=== PATIENT | female | born 1970 | race Caucasian/White ===

== ENCOUNTER 2023-06-01 06:20 | Emergency (ER) | payer OTHER, SELFPAY ==
[2023-06-01 06:22] VITALS: BP 124/71; PULSE 79; RESP 15; TEMP 36.6; O2SAT 95
[2023-06-01 07:10] LABS: Absolute Lymphocyte Count 2.64 X10^3/uL (0.83-4.51); Absolute Neutrophil Count 5.2 X10^3/uL (2.0-7.7); Basophil# 0.06 X10^3/uL; Basophil% 0.7 % (0-1); Eosinophil# 0.18 X10^3/uL; Lymphocyte # 2.64 X10^3/ul (0.83-4.51); Lymphocyte % 28.7 % (19-41); Mean Corp Hgb Conc 32.6 g/dL (32-36); Mean Corpuscular Hgb 28.8 pg (27.0-32.0); Mean Corpuscular Volume 88.3 fL (81-99); Mean Platelet Vol. 9.9 fl (6.2-12.0); Monocyte# 1.08 X10^3/uL; Monocyte% 11.7 % (0-10); NRBC Flagged by Analyzer 0 % (0-5); Neutrophil # 5.21 X10^3/uL (2.7-7.7); Neutrophil % 56.6 % (47-70); Platelet Count 315 K/mm3 (150-450); RBC Distribution Width CV 13.3 % (11.6-14.6); RBC Distribution Width SD 43.2 fl (35.1-43.9); Red Blood Count 5.21 M/mm3 (4.2-5.4); White Blood Count 9.2 K/mm3 (4.4-11.0)
--- OUTSIDE RECORDS SUMMARY | 2023-06-01 07:13 | XMS RPT_ITS | CCD ---
Author Name Unknown Address [address] [facility] [address] [place] [address] Organization [facility] Care Team Providers Care Desizing Machine Offbearer Name Role Phone JAVIER BLANCASBERLY Consulting Unavailable LOI PEPPER DR Attending Unavailable LOI PEPPER DR Admitting Unavailable LOI PEPPER DR Primary Care Unavailable PROVIDER, UNKNOWN Consulting Unavailable YONNY, TALA Consulting Unavailable LOI PEPPER DR Admitting Unavailable LOI PEPPER DR Primary Care Unavailable LOI PEPPER DR Attending Unavailable PROVIDER, UNKNOWN Consulting Unavailable YONNY, TALA Consulting Unavailable YONNY, TALA Attending Unavailable HILLS, TALA Admitting Unavailable [place], TALA Primary Care Unavailable PROVIDER, UNKNOWN Consulting Unavailable YONNY, TALA Consulting Unavailable LOI PEPPER DR Attending Unavailable LOI PEPPER DR Admitting Unavailable LOI PEPPER DR Primary Care Unavailable PROVIDER, UNKNOWN Consulting Unavailable YONNY, TALA Referring Unavailable CHACON, STEFFANIE C Primary Care Unavailable OSWALDO STEFFANIE C Attending Unavailable OSWALDO STEFFANIE C Admitting Unavailable YONNY, TALA Consulting Unavailable PROVIDER, UNKNOWN Consulting Unavailable YONNY, TALA Consulting Unavailable YONNY, TALA Referring Unavailable CHACON, STEFFANIE C Primary Care Unavailable CHACON STEFFANIE C Attending Unavailable CHACON, STEFFANIE C Admitting Unavailable PROVIDER, UNKNOWN Consulting Unavailable HILLS, TALA Consulting Unavailable YURIY, CELESTINA PAC Attending Unavailable YURIY, ECLESTINA PAC Admitting Unavailable YURIY, CELESTINA PAC Primary Care Unavailable PROVIDER, UNKNOWN Consulting Unavailable YURIY, CELESTINA PAC Primary Care Unavailable HILLS, TALA Consulting Unavailable YURIY, CELESTINA PAC Attending Unavailable YURIY, CELESTINA PAC Admitting Unavailable PROVIDER, UNKNOWN Consulting Unavailable YURIY, CELESTINA PAC Primary Care Unavailable HILLS, TALA Consulting Unavailable YURIY, CELESTINA PAC Attending Unavailable YURIY, CELESTINA PAC Admitting Unavailable PROVIDER, UNKNOWN Consulting Unavailable Allergies Allergy Classification Reported Allergen(s) Allergy Type Date of Onset Reaction(s) Facility (1 source) Adhesive Tape; Translations: [TAPE] Propensity to adverse reactions (disorder) [facility] (1 source) YEAST OR YEAST DERIVED PRODUCT Drug allergy (disorder) [facility] Problems Active Problems Problem Classification Problem Date Documented Da te Episodic/Chronic Diabetes mellitus without complication (1 source) Type 2 diabetes mellitus without complications; Translations: [Type 2 diabetes mellitus without complications] Onset: 08-30-2022 Chronic Disorders of lipid metabolism (1 source) Pure hyperglyceridemia; Translations: [Pure hyperglyceridemia] Onset: 08-30-2022 Chronic Essential hypertension (1 source) Essential (primary) hypertension; Translations: [Essential (primary) hypertension] Onset: 02-02-2023 Chronic Osteoarthritis (3 sources) Unilateral post-traumatic osteoarthritis, right knee; Translations: [Unilateral post-traumatic osteoarthritis, right knee] Onset: 02-23-2023 Chronic Past or Other Problems Problem Classification Problem Date Documented Da te Episodic/Chronic Other aftercare (1 source) Other intermediate (current) drug therapy; Translations: [Other intermediate (current) drug therapy] Onset: 08-30-2022 Episodic Results Test Name Value Interpretation Reference Range Facil ity Encounters Encounter Date Encounter Type Care Provider Facility Start: 05-26-2023 End: 05-26-2023 Emergency department patient visit [facility] Start: 02-23-2023 End: 05-15-2023 ambulatory [facility] Start: 02-21-2023 End: 02-21-2023 ambulatory [facility] Start: 02-02-2023 End: 02-02-2023 ambulatory [facility] Start: 02-02-2023 End: 02-02-2023 Encounter for other preprocedural examination LOI PEPPER [facility] Start: 01-06-2023 End: 01-06-2023 ambulatory [facility] Start: 11-22-2022 End: 11-22-2022 ambulatory CELESTINA YAN [facility] Start: 10-13-2022 End: 10-13-2022 ambulatory CELESTINA PAC YURIY [facility] Start: 10-10-2022 End: 10-10-2022 Emergency department patient visit [facility] Start: 08-30-2022 End: 08-30-2022 ambulatory [facility] Procedures Date Procedure Procedure Detail Performing Clinician Start: 05-26-2023 Urinalysis TALA Barnett ILLS Payers Date Payer Category Payer Unknown [id number] [id number] 1970 Unknown [id number] 2.16.8 [id number] 1970 Unknown [id number] 2.16.8 [id number] 1970 Unknown [id number] 2.16.8 [id number] 1970 Unknown [id number] 2.16.8 [id number] 1970 Unknown [id number] 2.16.8 [id number] 1970 Unknown [id number] 2.16.84 [id number] 1970 Unknown [id number] 2.16.84 [id number] 1970 Unknown [id number] 2.16.84 [id number] Unknown [id number] Summary Purpose Family History No Family History Records FoundNo Family History Records FoundNo Family History Records Found Advance Directives No Advanced Directives Records FoundNo Advanced Directives Records FoundNo Advanced Directives Records Found Additional Source Comments INFORMATION SOURCE (unrecogn ized section and content) DATE CREATED AUTHOR AUTHOR'S ORGANIZ ATION 02/25/2023 [facility] ([place]) DATE CREATED AUTHOR AUTHOR'S ORGANIZ ATION 05/31/2023 [facility] FOR RECORDS PERTAINING TO PATIENTS WHO ARE OR HAVE BEEN ENROLLED IN A CHEMICAL DEPENDENCY/SUBSTANCEABUSE PROGRAM, SOME INFORMATION MAY BE OMITTED. This clinical summary was aggregated from multiple sources. Caution should be exercised in using it in the provision of clinical care. This summary normalizes information from multiple sources, and as a consequence, information in this document may materially change the coding, format and clinical context of patient data. In addition, data may be omitted in some cases. CLINICAL DECISIONS SHOULD BE BASED ON THE PRIMARY CLINICAL RECORDS. [facility] provides no warranty or guarantee of the accuracy or completeness of information in this document.
[2023-06-01] MEDS: Metoclopramide 10 MG/2 ML Vial IV (07:16)
[2023-06-01] MEDS: 0.9% Normal Saline (1000mL) 1,000 ML 999 ML IV ×2 (07:16→08:03)
[2023-06-01 07:22] LABS: Bacteria 0 SEEN /hpf (None Seen)
[2023-06-01 07:23] LABS: Color, Urine Yellow (Yellow); Glucose, Dipstick Normal (Normal); Ketone-Dipstick 5 mg/dl (Negative); Leukocyte Esterase-Dipstick 25 /ul (Negative); Nitrite-Dipstick Negative (Negative); Occult Blood-Urine 250 /ul (Negative); Protein-Dipstick 30 mg/dl (Negative); Urine Bilirubin Dipstick Negative (Negative); Urine Clarity Clear (Clear); Urine Urobilinogen Normal (Normal); Urine pH 6.5 (5.0 - 8.0)
[2023-06-01 07:27] LABS: AST(SGOT) 37 U/L (15-37); Alanine Aminotransfer ALT/SGPT 45 U/L (13-56); Albumin, Serum 3.4 g/dL (3.2-5.0); Alkaline Phosphatase 161 U/L (45-117); Anion Gap 5 (5-15); BUN 6 mg/dL (7-18); BUN/Creat Ratio 6.6 RATIO (10-20); Bilirubin, Direct 0.06 mg/dL (0.00-0.30); Calcium,Total 10.3 mg/dL (8.5-10.1); Chloride 108 mmol/L (98-107); Creatinine, Serum 0.91 mg/dL (0.55-1.02); EST Glomerular Filtration Rate 69 mL/min (>60); Est Glom Filt Rate - Afr Amer 83 mL/min (>60); Globulin 3.4 g/dL (2.2-4.2); Glucose 104 mg/dL (74-106); Lipase 22 U/L (13-75); Magnesium 1.8 mg/dL (1.6-2.6); Potassium 3.6 mmol/L (3.5-5.1); Protein, Total 6.8 g/dL (6.4-8.2); Sodium Level 141 mmol/L (136-145)
[2023-06-01 07:29] LABS: Mucous, Urine 1+ /hpf (<or=2+); Red Blood Cells-Urine > 100 SEEN /hpf (0-5); Squamous Epithelial Cells - UA 0-5 SEEN /hpf (5-10); White Blood Cells 0-5 SEEN /hpf (0-5)
--- NOTE | 2023-06-01 07:35 | EX.ED.DYSGE1 ---
HPI History of Present Illness Chief Complaint: Nausea/Vomiting/Diarrhea Informant: patient and family Narrative Narrative: Patient is a 52-year-old female with past medical history of hypertension and newly diagnosed diabetes on metformin. She states that she has been having bouts of nausea and vomiting whenever she tries to eat or drink for the past few weeks and ever since starting metformin has had loose stool/diarrhea. She states that she recently started having blood in her urine and went to an outside facility where she was diagnosed with a UTI and is currently on antibiotics. She states that she is stopped urinating and has concern for dehydration and therefore comes in for evaluation. [facility] Medical History Anxiety Depression Diabetes HTN (hypertension) Restless leg Home Medications metoclopramide HCl 10 mg tablet (Reglan) 10 mg PO 4X/DAY PRN PRN nausea and vomiting #40 tabs 06/01/23 [Rx Last Taken Unknown] Allergy/AdvReac Type Severity Reaction Status Date / Time No Known Allergies Allergy Verified 06/01/23 06:21 Social History Smoking Status: Current every day smoker tobacco type: cigarettes ROS ROS ED Constitutional Constitutional ED: Denies chills or fever(s) ENT ENT ED: Denies sore throat Cardiovascular Cardiovascular: Denies chest pain Respiratory/Chest Respiratory/Chest: Denies cough or dyspnea Gastrointestinal Gastrointestinal: Reports abdominal pain, diarrhea, nausea and vomiting Genitourinary Genitourinary ED: Reports hematuria; Denies dysuria Musculoskeletal Musculoskeletal: Denies back pain or myalgias Integumentary Denies rash Neurologic Neurologic: Denies headache(s) Hematologic/Lymphatic Hematologic/Lymphatic: Denies easy bleeding or easy bruising EXAM Physical Exam Const Vital Signs: 06/01/23 06:22 Temperature 97.8 F Temperature Source Temporal Pulse Rate 79 Respiratory Rate 15 Blood Pressure 124/71 H Blood Pressure Mean 88 Pulse Ox 95 Positive well nourished and well developed General Appearance ED: well developed; Negative for pallor HEENT Reports dry mucous membranes HEENT Narrative: Mucous membranes are dry and tacky without secondary changes to suggest infection Mouth ED: Yes dry mucous membranes Mouth: dry mucous membranes Eyes PERRL and EOMs intact bilaterally General Eye ED: Negative for scleral icterus Neck supple Neck Narrative: No nuchal rigidity or meningeal signs Resp normal respiratory effort and clear to auscultation bilaterally Cardio regular rate and regular rhythm Rate: other Other Details: Heart is regular rate and rhythm without murmurs rubs or gallops Radial and carotid pulses equal and symmetric GI non-tender and non-distended GI Narrative: Abdomen is soft nontender nondistended with hypoactive bowel sounds. There is mild diffuse pain on palpation without voluntary guarding or rigidity No pulsatile mass or fluid wave No increased tympany Auscultation: hypoactive bowel sounds Palpation: soft Extremity normal to inspection Neuro oriented x3, CN's II-XII intact bilaterally and no sensory deficits noted Sensorium / Orientation: alert Motor Exam: strength 5/5 throughout Psych mental status grossly normal Skin no rashes or lesions noted Skin Narrative: Skin turgor is increased General Skin Exam: Negative for jaundice or pallor MDM MDM MDM Narrative Medical decision making narrative: Patient presented to the ER with stable vitals. She reported 3 weeks of vomiting after any type of ingestion and then began with bouts of loose stool after metformin. Loose stools most likely related to the metformin dosing but with persistent nausea and vomiting as well as multiple abdominal surgeries there is concern for obstruction versus colitis versus gastroparesis versus pancreatitis versus biliary colic. There is also concern for acute kidney injury as patient states she stopped urinating or have potential electrolyte derangement. Basic labs were obtained which showed normal kidney function with a creatinine of 0.91 and no leukocytosis or clinically significant electrolyte finding. Also her anion gap is not elevated and her bicarb is normal going against DKA. Urine does not show any signs of infection but blood is persistent therefore there is concern for potential kidney stone or some type of mass causing her hematuria. Patient was given 1 L of fluid secondary to the dehydration. As a urine sample does not show any signs of infection I do not feel there is need for antibiotics. Patient CT scan showed cysts on the kidney which are benign and no sign of kidney stone or bladder cancer. There was question of mild diverticulitis but the patient does not have a fever or white count and symptoms have been ongoing for the past 3 weeks and therefore I do not feel that this is an acute infection and do not recommend antibiotics. Therefore at this time patient can finish the Keflex which was prescribed by the outside facility Reglan will be added for nausea and vomit control and she can follow-up with her family doctor and/or urology if hematuria persists any potentially GI if there is need for EGD to discuss/diagnose gastroparesis History & Record Review Discussion w/independent historian: Patient and Family Lab Data Attestation: I reviewed the patient's lab results. Labs: Laboratory Results - last 24 hr 06/01/23 06/01/23 07:00 07:15 WBC 9.2 RBC 5.21 Hgb 15.0 Hct 46.0 MCV 88.3 MCH 28.8 MCHC 32.6 RDW Std Deviation 43.2 RDW Coeff of Ward 13.3 Plt Count 315 MPV 9.9 Immature Gran % (Auto) 0.300 Neut % (Auto) 56.6 Lymph % (Auto) 28.7 [place] % (Auto) 11.7 H Eos % (Auto) 2.0 Baso % (Auto) 0.7 Absolute Neuts (auto) 5.2 Absolute Lymphs (auto) 2.64 Nucleated RBC % 0 Sodium 141 Potassium 3.6 Chloride 108 H Carbon Dioxide 28.0 Anion Gap 5 BUN 6 L Creatinine 0.91 Est GFR (MDRD) Af Amer 83 Est GFR (MDRD) Non-Af 69 BUN/Creatinine Ratio 6.6 L Glucose 104 Lactic Acid 2.4 H* Calcium 10.3 H Magnesium 1.8 Total Bilirubin 0.20 Direct Bilirubin 0.06 AST 37 ALT 45 Alkaline Phosphatase 161 H Total Protein 6.8 Albumin 3.4 Globulin 3.4 Lipase 22 Urine Color Yellow Urine Clarity Clear Urine pH 6.5 Ur Specific [place] 1.010 Urine Protein 30 H Urine Glucose (UA) Normal Urine Ketones 5 H Urine Occult Blood 250 H Urine Nitrite Negative Urine Bilirubin Negative Urine Urobilinogen Normal Ur Leukocyte Esterase 25 H Urine RBC > 100 SEEN Urine WBC 0-5 SEEN Ur Squamous Epith Cells 0-5 SEEN Urine Bacteria 0 SEEN Urine Mucus 1+ Radiography Diagnostic Testing: Clinical Impression(s) from Imaging Studies Abdomen/Pelvis CT 06/01/23 07:47 IMPRESSION: (NOT LISTED IN ORDER OF SIGNIFICANCE) Fatty liver. Enlarged liver. Wall thickening of the sigmoid colon. This may suggest chronic diverticular change but mild diverticulitis is not excluded. Other findings as above. Electronically Signed: Christ Gonzalez MD at 8:07 EST Reading Location ID and State: [facility] / [place] , Service support , Discharge Plan Triage Chief Complaint: Nausea/Vomiting/Diarrhea ED Provider: Brent Ayers Dx/Rx/DC Orders Clinical Impression: Non-insulin dependent diabetes mellitus, Nausea & vomiting, Dehydration, Hematuria Instructions: Hematuria: Possible Causes, Dehydration, Diabetes: Living Your Life Prescriptions: New metoclopramide HCl [Reglan] 10 mg tablet 10 mg PO 4X/DAY PRN PRN (Reason: nausea and vomiting) Qty: 40 1RF Primary Care Provider: Blaire Dawson Referrals: Blaire Dawson PA-C [Primary Care Provider] - Activity Restrictions/Additional Instructions: Please finish out your antibiotics as there is no sign of UTI on today's exam. If hematuria persist talk to your family doctor about referral to a urologist for further evaluation and return to the ER should you have any further concerns Disposition Disposition: Home, Self Care Capacity Legal Clinical Research Coordinator Reflex Medical hold order details:: IF a medical hold is selected below, a suggested order for a MEDICAL HOLD will reflex upon signing the document. Next of kin: [place] law dictates a PRIORITY LIST for identifying legal decision-maker/legal next of kin in the following order (LNOK): 1st: The patient?s legal guardian, if any 2nd: The patient's spouse (if status is questionable, consult Risk Management) 3rd: The patient?s adult child(octaviano) (majority, if multiple children) 4th: The patient?s parents 5th: The patient?s adult siblings (majority, if multiple children siblings)
[2023-06-01 07:46] LABS: Lactic Acid 2.4 mmol/L (0.4-1.9)
--- NOTE | 2023-06-01 07:47 | CT_ITS ---
STUDY: CT Abdomen And Pelvis W/ Contrast Injection 06/01/2023 8:04 AM REASON FOR EXAM: Female, 52 years old. Abdominal pain abd pain Individualized dose optimization techniques were used for this CT. COMPARISON: None. TECHNIQUE: CT Abdomen And Pelvis W/ Contrast Injection IV 100mL Isovue-300 FINDINGS: The visualized lung bases are unremarkable. The visualized portions of the heart are within normal limits. There is decreased attenuation of the liver consistent with steatosis. Normal gallbladder and extrahepatic biliary system. Normal spleen. Normal pancreas.There is hepatomegaly with diffuse hepatic enlargement. Normal bilateral adrenal glands. There are hypodensities in the right kidney. These are consistent for cysts. No follow up required. There are hypodensities in the left kidney. These are consistent for cysts. No follow up required. Normal visualized stomach. Normal small intestine. Wall thickening of the sigmoid colon. This may suggest chronic diverticular change but mild diverticulitis is not excluded. The appendix is visualized and appears normal. There are calcifications of the abdominal aorta. This is consistent for atherosclerotic disease. There is NO abdominal aortic aneurysm. Vascular workup can be obtained based on clinical correlation. Normal inferior vena cava. Subcentimeter mesenteric lymph nodes. Normal urinary bladder. There is absence of the uterus consistent with a prior hysterectomy. Normal abdominal wall. Normal osseous structures. CT/Abdomen/Pelvis W IV Cont ONLY IMPRESSION: (NOT LISTED IN ORDER OF SIGNIFICANCE) Fatty liver. Enlarged liver. Wall thickening of the sigmoid colon. This may suggest chronic diverticular change but mild diverticulitis is not excluded. Other findings as above. Electronically Signed: Christ Gonzalez MD at 8:07 EST ,
[2023-06-01 08:21] VITALS: BP 104/59
[2023-06-01 11:28] LABS: Reflex Lactate? Y
== END 2023-06-01 09:53 | disposition home or self-care (01) ==
PROVIDERS: Emergency Provider Emergency Medicine; PCP Family Medicine; Visit Provider Emergency Medicine
DX: E86.0 Dehydration (principal); E11.9 Type 2 diabetes mellitus without complications; N39.0 Urinary tract infection, site not specified; N28.1 Cyst of kidney, acquired; R31.9 Hematuria, unspecified; I10 Essential (primary) hypertension; R19.7 Diarrhea, unspecified; R11.2 Nausea with vomiting, unspecified; F17.210 Nicotine dependence, cigarettes, uncomplicated; Z79.82 Long term (current) use of aspirin; Z79.899 Other long term (current) drug therapy
CPT/HCPCS: 74177; 80048; 80076; 81001; 83605; 83690; 83735; 85025; 96361; 96374; 99283; J7030; Q9967

== ENCOUNTER 2023-07-10 21:56 | Emergency (ER) | payer OTHER, SELFPAY ==
[2023-07-10 21:57] VITALS: BP 139/63; PULSE 96; RESP 27; TEMP 37; O2SAT 96; BMI 37.1
--- NOTE | 2023-07-10 22:13 | EKG12_ITS ---
Test Reason : Blood Pressure : / mmHG Vent. Rate : 095 BPM Atrial Rate : 095 BPM P-R Int : 128 ms QRS Dur : 090 ms QT Int : 312 ms P-R-T Axes : 047 037 052 degrees QTc Int : 392 ms Normal sinus rhythm Nonspecific ST abnormality Abnormal ECG Confirmed by BEBE HIGGINS, SARKIS ([id number]), market editor DARREN ARAUZ ([id number]) on 07/18/2023 9:45:14 AM Referred By: Confirmed By:SOTO SPENCE MD
[2023-07-10] MEDS: 0.9% Normal Saline (1000mL) 1,000 ML 1000 ML IV (22:19)
--- NOTE | 2023-07-10 22:23 | RAD_ITS ---
STUDY: X-RAY CHEST REASON FOR EXAM: Female, 52 years old. chest pain TECHNIQUE: Single AP portable view of the chest. COMPARISON: 10/23/2007. FINDINGS: The lungs are clear and expanded. There is no demonstrated pleural abnormality. Normal size heart. Normal mediastinum and yakov. Normal visualized pulmonary arteries. There is atherosclerotic calcification of the aortic arch with tortuosity. There are diffuse degenerative changes of the visualized thoracic spine. There is degenerative osteoarthritis of the bilateral shoulders. There is no demonstrated abnormality of the visualized soft tissue structures of the upper abdomen. RAD/Chest 1 View (Portable) IMPRESSION: No acute cardiopulmonary disease. Electronically Signed: Gina Avila MD at 22:54 EST ,
[2023-07-10 22:24] LABS: Absolute Lymphocyte Count 4.45 X10^3/uL (0.83-4.51); Basophil# 0.08 X10^3/uL; Basophil% 0.6 % (0-1); Eosinophil# 0.22 X10^3/uL; Eosinophils% 1.7 % (0-5); Hematocrit 47.7 % (37-47); Hemoglobin 15.5 g/dL (12.0-15.0); Lymphocyte # 4.45 X10^3/ul (0.83-4.51); Lymphocyte % 35.1 % (19-41); Mean Corp Hgb Conc 32.5 g/dL (32-36); Mean Corpuscular Volume 89.3 fL (81-99); Mean Platelet Vol. 9.7 fl (6.2-12.0); Monocyte# 0.91 X10^3/uL; Monocyte% 7.2 % (0-10); NRBC Flagged by Analyzer 0 % (0-5); Neutrophil # 6.95 X10^3/uL (2.7-7.7); Neutrophil % 54.8 % (47-70); POSITIVE MORPHOLOGY YES; Platelet Count 364 K/mm3 (150-450); RBC Distribution Width CV 13.9 % (11.6-14.6); Red Blood Count 5.34 M/mm3 (4.2-5.4); White Blood Count 12.7 K/mm3 (4.4-11.0)
--- OUTSIDE RECORDS SUMMARY | 2023-07-10 22:31 | XMS RPT_ITS | CCD ---
Author Name Unknown Address [address] [facility] [address] [place] [address] Organization [facility] Care Team Providers Care Buyer Renter Name Role Phone HILLS, TALA Consulting Unavailable HILLS, TALA Attending Unavailable HILLS, TALA Admitting Unavailable FORESTVILLE, TALA Primary Care Unavailable PROVIDER, UNKNOWN Consulting Unavailable HILLS, TALA Consulting Unavailable FORESTVILLE, TALA Attending Unavailable FORESTVILLE, TALA Admitting Unavailable FORESTVILLE, TALA Primary Care Unavailable PROVIDER, UNKNOWN Consulting Unavailable FORESTVILLE, TALA Consulting Unavailable LOI PEPPER DR Attending Unavailable LOI PEPPER DR Admitting Unavailable LOI PEPPER DR Primary Care Unavailable PROVIDER, UNKNOWN Consulting Unavailable HILLS, TALA Consulting Unavailable HILLS, TALA Referring Unavailable CHACON, STEFFANIE C Primary Care Unavailable CHACON, STEFFANIE C Attending Unavailable CHACON, STEFFANIE C Admitting Unavailable PROVIDER, UNKNOWN Consulting Unavailable HILLS, TALA Referring Unavailable HILLS, TALA Consulting Unavailable CHACON, STEFFANIE C Primary Care Unavailable CHACON STEFFANIE C Attending Unavailable CHACON, STEFFANIE C Admitting Unavailable PROVIDER, UNKNOWN Consulting Unavailable YURIY, CELESTINA PAC Attending Unavailable HILLS, TALA Consulting Unavailable YURIY, CELESTINA PAC Admitting Unavailable YURIY, CELESTINA PAC Primary Care Unavailable PROVIDER, UNKNOWN Consulting Unavailable YURIY, CELESTINA PAC Primary Care Unavailable HILLS, TALA Consulting Unavailable YURIY, CELESTINA PAC Attending Unavailable YURIY, CELESTINA PAC Admitting Unavailable PROVIDER, UNKNOWN Consulting Unavailable YURIY, CELESTINA PAC Primary Care Unavailable HILLS, TALA Consulting Unavailable YURIY, CELESTINA PAC Attending Unavailable YURIY, CELESTINA PAC Admitting Unavailable PROVIDER, UNKNOWN Consulting Unavailable YONNY, TALA Consulting Unavailable LOI PEPPER DR Attending Unavailable LOI PEPPER DR Admitting Unavailable LOI PEPPER DR Primary Care Unavailable PROVIDER, UNKNOWN Consulting Unavailable TALA BLANCAS Consulting Unavailable LOI PEPPER DR Admitting Unavailable LOI PEPPER DR Primary Care Unavailable LOI PEPPER DR Attending Unavailable PROVIDER, UNKNOWN Consulting Unavailable Allergies Allergy Classification Reported Allergen(s) Allergy Type Date of Onset Reaction(s) Facility (1 source) Adhesive Tape; Translations: [TAPE] Propensity to adverse reactions (disorder) [facility] Repository (1 source) YEAST OR YEAST DERIVED PRODUCT Drug allergy (disorder) [facility] Repository Problems Active Problems Problem Classification Problem Date Documented Da te Episodic/Chronic Anxiety disorders (1 source) Anxiety disorder, unspecified; Translations: [Anxiety disorder, unspecified] Onset: 05-26-2023 Chronic Diabetes mellitus without complication (1 source) Type 2 diabetes mellitus without complications; Translations: [Type 2 diabetes mellitus without complications] Onset: 05-26-2023 Chronic Disorders of lipid metabolism (1 source) Pure hyperglyceridemia; Translations: [Pure hyperglyceridemia] Onset: 08-30-2022 Chronic Essential hypertension (1 source) Essential (primary) hypertension; Translations: [Essential (primary) hypertension] Onset: 05-26-2023 Chronic Genitourinary symptoms and ill-defined conditions (3 sources) Gross hematuria; Translations: [Gross hematuria] Onset: 06-16-2023 Episodic Osteoarthritis (3 sources) Unilateral post-traumatic osteoarthritis, right knee; Translations: [Unilateral post-traumatic osteoarthritis, right knee] Onset: 02-23-2023 Chronic Residual codes; unclassified (1 source) Acquired absence of other genital organ(s); Translations: [Acquired absence of other genital organ(s)] Onset: 05-26-2023 Episodic Residual codes; unclassified (1 source) Acquired absence of other specified parts of digestive tract; Translations: [Acquired absence of other specified parts of digestive tract] Onset: 05-26-2023 Episodic Urinary tract infections (3 sources) Urinary tract infection, site not specified; Translations: [Urinary tract infection, site not specified] Onset: 05-26-2023 Episodic Past or Other Problems Problem Classification Problem Date Documented Da te Episodic/Chronic Other aftercare (1 source) Other cylinder steamer (current) drug therapy; Translations: [Other cylinder steamer (current) drug therapy] Onset: 08-30-2022 Episodic Results Test Name Value Interpretation Reference Range Facil ity Encounters Encounter Date Encounter Type Care Provider Facility Start: 06-16-2023 End: 06-16-2023 ambulatory [facility] Start: 05-26-2023 End: 05-26-2023 Emergency department patient visit [facility] Start: 02-23-2023 End: 05-15-2023 ambulatory [facility] Start: 02-21-2023 End: 02-21-2023 ambulatory [facility] Start: 02-02-2023 End: 02-02-2023 ambulatory [facility] Start: 02-02-2023 End: 02-02-2023 Encounter for other preprocedural examination LOI PEPPER [facility] Start: 01-06-2023 End: 01-06-2023 ambulatory [facility] Start: 11-22-2022 End: 11-22-2022 ambulatory [facility] Start: 10-13-2022 End: 10-13-2022 [facility] Start: 10-10-2022 End: 10-10-2022 Emergency department patient visit [facility] Start: 08-30-2022 End: 08-30-2022 [facility] Procedures Date Procedure Procedure Detail Performing Clinician Start: 05-26-2023 Urinalysis TALA H ILLS Payers Date Payer Category Payer Unknown [id number] 2.16.8 [id number] 1970 Unknown [id number] 2.16.8 [id number] 1970 Unknown [id number] 2.16.8 [id number] 1970 Unknown [id number] 2.16.8 [id number] 1970 Unknown [id number] 2.16.8 [id number] 1970 Unknown [id number] 2.16.8 [id number] 1970 Unknown [id number] 2.16.8 [id number] 1970 Unknown [id number] 2.16.84 [id number] 1970 Unknown [id number] 2.16.84 [id number] 1970 Unknown [id number] 2.16.84 [id number] Unknown [id number] Summary Purpose Family History No Family History Records FoundNo Family History Records FoundNo Family History Records Found Advance Directives No Advanced Directives Records FoundNo Advanced Directives Records FoundNo Advanced Directives Records Found Additional Source Comments INFORMATION SOURCE (unrecogn ized section and content) DATE CREATED AUTHOR AUTHOR'S ORGANIZ ATION 02/25/2023 [facility] [place] DATE CREATED AUTHOR AUTHOR'S ORGANIZ ATION 06/22/2023 [facility] FOR RECORDS PERTAINING TO PATIENTS WHO ARE [...] BE BASED ON THE PRIMARY CLINICAL RECORDS. [facility]. provides no warranty or guarantee of the accuracy or completeness of information in this document.
[2023-07-10 22:32] LABS: Differential Indicated SCAN CRITERIA MET
[2023-07-10 22:46] LABS: Anion Gap 4 (5-15); BUN 9 mg/dL (7-18); BUN/Creat Ratio 10.9 RATIO (10-20); Calcium,Total 10.3 mg/dL (8.5-10.1); Chloride 111 mmol/L (98-107); Creatinine, Serum 0.82 mg/dL (0.55-1.02); EST Glomerular Filtration Rate 77 mL/min (>60); Est Glom Filt Rate - Afr Amer 93 mL/min (>60); Estimated Creatinine Clearance 94.61 ml/min; Glucose 134 mg/dL (74-106); Magnesium 1.7 mg/dL (1.6-2.6); Sodium Level 142 mmol/L (136-145); Troponin-I HS (w/2H Reflex) 15 pg/mL (3.0-54.0)
[2023-07-10 22:47] LABS: Differential Comment SCANNED; Reactive Lymphocyte 1+
--- NOTE | 2023-07-10 22:56 | EX.ED.DYSGE1 ---
HPI History of Present Illness Chief Complaint: Palpitations Informant: patient and family Narrative Narrative: Patient presents after an episode of palpitations at home. Patient states she was just sitting on the couch. She felt perfectly fine. Her heart started to race. She did not have chest pain or shortness of breath with that. But EMS was called. Although I do not have the EMS report, apparently they found her to be in SVT with a heart rate about 205. They gave her 6 mg of adenosine and it converted her to normal sinus rhythm. Palpitations and symptoms are gone. Patient does state that when she was given adenosine she had some chest heaviness but it was only when she was given that medicine not before or after. She has no history of heart disease. She does have some diabetes and blood pressure but no new medicines. She has not been ill recently. [facility] Medical History Anxiety Depression Diabetes HTN (hypertension) Restless leg Home Medications aripiprazole 5 mg tablet 5 mg PO DAILY 07/10/23 [History Last Taken Unknown] buspirone 15 mg tablet 15 mg PO DAILY 07/10/23 [History Last Taken Unknown] gabapentin 300 mg capsule 600 mg PO QHS 07/10/23 [History Last Taken Unknown] glipizide 5 mg tablet 5 mg PO QHS 07/10/23 [History Last Taken Unknown] lisinopril 10 mg tablet 10 mg PO DAILY 07/10/23 [History Last Taken Unknown] sertraline 100 mg tablet 200 mg PO Q24H 07/10/23 [History Last Taken Unknown] spironolactone 100 mg tablet 100 mg PO DAILY 07/10/23 [History Last Taken Unknown] potassium chloride 20 mEq tablet,extended release 20 meq PO BID #10 tabs 07/11/23 [Rx Last Taken Unknown] Allergy/AdvReac Type Severity Reaction Status Date / Time No Known Allergies Allergy Verified 07/10/23 22:00 Social History Smoking Status: Current every day smoker tobacco type: cigarettes ROS ROS ED ROS Narrative A complete review of systems was performed and is negative except as documented in the history of present illness. Some specific details below. Constitutional: No recent fevers or chills. She has not felt ill recently EYE: No visual changes or darkening of vision. ENT: No difficulty swallowing. No swelling. No pain. No reflux symptoms. CV: See history of present illness. Respiratory: She did not feel short of breath with this. No coughing or wheezing. GI: No abdominal pain. No nausea vomiting diarrhea. No blood in stool. Although patient does not have nausea now, she has had problem with nausea and vomiting for several months. She has been seeing her doctor about this. They are working through it. Currently she takes Phenergan a few times a day and this is controlling her symptoms. Again, she is not nauseated now nor was she this evening. : No frequency dysuria or hematuria. Musculoskeletal: No recent trauma. No pains. No swelling. Skin: No rash. Nondiaphoretic. Neuro: No weakness or numbness. Endocrine: No polyuria or polydipsia. EXAM Physical Exam Narrative Exam Narrative: CONSTITUTIONAL: Patient is nontoxic in appearance. The patient looks comfortable. Work of breathing looks normal. HEENT: No notable trauma. Mucous membranes moist. EYES: No conjunctival injection. No proptosis. NECK:No JVD. No stridor. CARDIOVASCULAR: Regular rate. Regular rhythm. No notable murmur. No JVD. Currently, on the monitor, patient has a sinus rhythm at 90 with no PVCs or ectopy noted. RESPIRATORY: No respiratory distress. Breathing is unlabored. No wheezes. No rhonchi. No rales. No pain with a deep breath. No chest wall tenderness. Saturations are normal at 96% on room air showing no hypoxia. GASTROINTESTINAL: Not distended. Bowel sounds are normal. No tenderness. No guarding. No rebound. No palpable mass. No bruit is heard. GENITOURINARY: No tenderness over the bladder. No CVA tenderness. MUSCULOSKELETAL: Atraumatic. No peripheral edema. No cord. No tenderness along the deep venous system. No asymmetry. No distended veins. NEUROLOGICAL: Patient is alert and appropriate. No focal deficit noted. SKIN: No noted rashes. No diaphoresis. No pallor. PSYCHIATRIC: Patient is calm. Mood is appropriate. Const Vital Signs: 07/10/23 21:57 07/10/23 22:02 07/10/23 22:18 Temperature 98.6 F Temperature Source Oral Pulse Rate 96 Respiratory Rate 27 H Respiratory Effort Normal Non-Labored Blood Pressure 139/63 H Blood Pressure Mean 88 Pulse Ox 96 Oxygen Delivery Method Room Air Room Air 07/10/23 23:24 07/11/23 00:39 Temperature Temperature Source Pulse Rate 83 70 Respiratory Rate 20 H 19 H Respiratory Effort Blood Pressure 115/61 112/52 L Blood Pressure Mean 79 72 Pulse Ox 96 96 Oxygen Delivery Method Room Air Room Air MDM MDM MDM Narrative Medical decision making narrative: My independent interpretation of the patient's single AP chest x-ray shows no acute process. Normal mediastinum cardiac silhouette and lung seo. Final reading by radiology is no acute cardiopulmonary disease. Blood work shows CBC with minimal elevation of white count and hemoglobin which is nonspecific. Patient's electrolytes do show low potassium at 3.0. This is replaced as this could have contributed to her symptoms. She also has a history of some hypokalemia and was switched to spironolactone for blood pressure control because of the low potassium. Magnesium level is normal. Troponin is negative at 15. Repeat troponin is 52. Although her troponin has risen a fair amount, it is still within normal limits. Patient has remained asymptomatic. I am not surprised that somebody who had a heart rate at over 200 is going to have a rise of their troponin. The only time the patient had any chest discomfort was when she got the adenosine IV. She never had chest pain before. She has never had pain after. She has no dyspnea nausea vomiting or diaphoresis. I do not think this requires admission. She is asymptomatic. Her heart rate is 70 on the monitor and normal sinus rhythm now. We will get her home with a few day supply of potassium. We discussed the follow-up and reasons to return. Lab Data Attestation: I reviewed the patient's lab results. Labs: Laboratory Results - last 24 hr 07/10/23 07/11/23 22:05 00:25 WBC 12.7 H RBC 5.34 Hgb 15.5 H Hct 47.7 H MCV 89.3 MCH 29.0 MCHC 32.5 RDW Std Deviation 45.0 H RDW Coeff of Ward 13.9 Plt Count 364 MPV 9.7 Immature Gran % (Auto) 0.600 Neut % (Auto) 54.8 Lymph % (Auto) 35.1 [place] % (Auto) 7.2 Eos % (Auto) 1.7 Baso % (Auto) 0.6 Absolute Neuts (auto) 7.0 Absolute Lymphs (auto) 4.45 Nucleated RBC % 0 Differential Comment SCANNED Reactive Lymphocytes 1+ Sodium 142 Potassium 3.0 L Chloride 111 H Carbon Dioxide 27.0 Anion Gap 4 L BUN 9 Creatinine 0.82 Estim Creat Clear Calc 94.61 Est GFR (MDRD) Af Amer 93 Est GFR (MDRD) Non-Af 77 BUN/Creatinine Ratio 10.9 Glucose 134 H Calcium 10.3 H Magnesium 1.7 Troponin I High Sens 15 52 Radiography Diagnostic Testing: Clinical Impression(s) from Imaging Studies Chest X-Ray 07/10/23 22:23 IMPRESSION: No acute cardiopulmonary disease. Electronically Signed: Gina Avila MD at 22:54 EST , EKG Initial EKG: Comments: My independent interpretation of the patient's EKG shows normal sinus rhythm with overall rate of 95. No ectopy. Mild nonspecific diffuse changes but no sign of acute ST elevation or depression. AL interval, QRS duration and QTc are normal. Discharge Plan Triage Chief Complaint: Palpitations ED Provider: Charles Soares Dx/Rx/DC Orders Clinical Impression: SVT (supraventricular tachycardia), Hypokalemia Instructions: ED Understanding Supraventricular Tachycardia (SVT) Prescriptions: New potassium chloride 20 mEq tablet extended release 20 meq PO BID Qty: 10 0RF Rx Instructions: 1 tablet twice a day for 3 days then 1 tablet once a day until done No Action gabapentin 300 mg capsule 600 mg PO QHS Patient Comments: TAKE 2 CAPSULES BY MOUTH EVERY DAY AT BEDTIME buspirone 15 mg tablet 15 mg PO DAILY Patient Comments: TAKE 1 TABLET BY MOUTH TWICE DAILY sertraline 100 mg tablet 200 mg PO Q24H Patient Comments: TAKE 2 TABLETS BY MOUTH EVERY DAY AT BEDTIME lisinopril 10 mg tablet 10 mg PO DAILY Patient Comments: TAKE 1 TABLET BY MOUTH ONCE DAILY aripiprazole 5 mg tablet 5 mg PO DAILY Patient Comments: TAKE 1 TABLET BY MOUTH ONCE DAILY spironolactone 100 mg tablet 100 mg PO DAILY Patient Comments: TAKE 1 TABLET BY MOUTH ONCE DAILY glipizide 5 mg tablet 5 mg PO QHS Patient Comments: TAKE 1 TABLET BY MOUTH BEFORE BEDTIME Primary Care Provider: Blaire Dawson Referrals: Blaire Dawson, PA-C [Primary Care Provider] - 3-5 Days Disposition Disposition: Home, Self Care
[2023-07-10 23:24] VITALS: BP 115/61; PULSE 83; RESP 20; O2SAT 96
[2023-07-10] MEDS: Potassium Chloride Oral Tablet 20 MEQ 40 MEQ PO (23:29)
[2023-07-11 00:21] LABS: Reflex Troponin-HS? (from REC) Y
[2023-07-11 00:39] VITALS: BP 112/52; PULSE 70; RESP 19; O2SAT 96
[2023-07-11 00:52] LABS: Troponin-I HS 52 pg/mL (3.0-54.0)
[2023-07-11 01:14] VITALS: BP 112/48; PULSE 72; RESP 16; TEMP 36.7; O2SAT 94
== END 2023-07-11 01:24 | disposition home or self-care (01) ==
PROVIDERS: Emergency Provider Emergency Medicine; PCP Family Medicine; Visit Provider Emergency Medicine
DX: I47.10 Supraventricular tachycardia, unspecified (principal); E11.9 Type 2 diabetes mellitus without complications; E87.6 Hypokalemia; I10 Essential (primary) hypertension; F32.A Depression, unspecified; F41.9 Anxiety disorder, unspecified; F17.210 Nicotine dependence, cigarettes, uncomplicated; Z79.84 Long term (current) use of oral hypoglycemic drugs; Z79.899 Other long term (current) drug therapy
CPT/HCPCS: 71045; 80048; 83735; 84484; 85025; 93005; 96374; 99284; J7030; A4216

== ENCOUNTER → 2023-08-02 | Outpatient (CLI) | payer OTHER, SELFPAY ==
--- NOTE | 2023-08-02 | CYSPIN_PTH ---
PATIENT: MICHELLE ANNE LOC: [facility] U#:[id number] AGE/SX: 52/F ROOM: RE08/02/[address]: Dr. Itzel Tobar MD : 1970 BED: DIS: 08/02/2023 SPEC #: [id number] RECD: 08/03/23 08:34 STATUS: ANNALEE GURVINDER #: [id number] RINKU: 08/02/23 00:[address]: Itzel Tobar DEPT: CYTOLOGY RECD BY: Valery Rey ENTERED: 08/03/23 08:35 SP TYPE: CYSPIN FL OT DR: Blaire Dawson PA-C Tissues: Urine Procedures: Pap Stain (control) Special Stain Group II Cytospin Fluid HEADER OPERATION: Not noted PRE-OP DIAGNOSIS: Gross Hematuria TISSUE SUBMITTED: Urine for cytology DIAGNOSIS CYTOLOGY Urine for cytology (cytospin): Negative for high grade urothelial carcinoma Hoda Category II. See comment. AM/mr 08/03/2023 COMMENT Specimen primarily consists of squamous epithelial cells. Clinical correlation is suggested. The Hoda System for urine cytology diagnostic categorization was used in the evaluation of this case. CYTOLOGY STUDY Slides are reviewed. CYTOLOGY GROSS Received is 30 ml of light yellow-cloudy fluid labeled with the patient's name and and designated per the requisition as urine. Submitted for cytology preparation. mr 08/02/23 TC:5 CPT: 19224
[2023-08-02 17:56] LABS: Cytology, Body Fluid / CSF SEE PATHOLOGY REPORT
== END | disposition home or self-care (01) ==
PROVIDERS: PCP Family Medicine; Visit Provider Urology
DX: R31.0 Gross hematuria (principal)
CPT/HCPCS: 88108; 88313

== ENCOUNTER 2023-09-02 06:57 | Day surgery (SDC) | payer OTHER, SELFPAY ==
[2023-09-02] VITALS (9 sets, daily range): BP systolic 105–136; BP diastolic 56–81; PULSE 68–87; RESP 16–18; TEMP 36.4–37.4; O2SAT 92–95; BMI 37.8
--- NOTE | 2023-09-02 | CYSPIN_PTH ---
PATIENT: MICHELLE ANNE LOC: [facility] U#:[id number] AGE/SX: 52/F ROOM: RE09/02/[address]: Dr. Itzel Tobar MD : 1970 BED: DIS: 09/02/2023 SPEC #: [id number] RECD: 09/02/23 09:21 STATUS: ANNALEE GURVINDER #: [id number] RINKU: 09/02/23 00:[address]: Itzel Tobar DEPT: CYTOLOGY RECD BY: Rodrigo Childress ENTERED: 09/02/23 09:22 SP TYPE: CYSPIN FL OTHR DR: Blaire Dawson PA-C Tissues: A - Urine B - Urine Procedures: Pap Stain (control) Special Stain Group II Cytospin Fluid HEADER OPERATION: Bilateral ureteroscopy, bilateral retrograde PRE-OP DIAGNOSIS: Gross hematuria TISSUE SUBMITTED: A- Urine for cytology (right ureter), B- Urine for cytology (left ureter) DIAGNOSIS CYTOLOGY A. Urine for cytology, right ureter (cytospin): Negative for high grade urothelial carcinoma (Hoda Category II). B. Urine for cytology, left ureter (cytospin): Negative for high grade urothelial carcinoma, (Hoda Category II). AM/mr 09/02/23 COMMENT A&B. The Hoda System for urine cytology diagnostic categorization was used in the evaluation of this case. CYTOLOGY STUDY Slides are reviewed. CYTOLOGY GROSS A. Received is 10 ml of light yellow-cloudy fluid labeled with the patient's name and and designated per the requisition as urine. Submitted for cytology preparation. B. Received is 15 ml of light yellow-cloudy fluid labeled with the patient's name and and designated per the requisition as urine. Submitted for cytology preparation. mr 09/02/23 TC:5 CPT: 84592 x2
[2023-09-02] MEDS: Lactated Ringers 1,000 ML 15 ML IV (07:50)
[2023-09-02 08:12] LABS: Potassium 3.9 mmol/L (3.5-5.1)
--- NOTE | 2023-09-02 08:18 | PCM.HP.STD ---
[facility] - General General Date of Service: 09/02/23 Chief Complaint: Gross hematuria [facility] Narrative MICHELLE ANNE, is a 52 F who has had episodes of gross hematuria along with microscopic hematuria that needs evaluation with cystoscopy, ureteroscopy and cytology sampling. She has already had a hysterectomy. She has no symptoms of urinary tract infection today. Informed consent has been obtained. She is a longstanding smoker. [facility] Medical History (Updated 09/02/23 @ 08:[address] Itzel Tobar MD) Anxiety Bipolar disorder Depression Diabetes Diverticulosis Fatty liver GERD (gastroesophageal reflux disease) Gross hematuria History of hiatal hernia History of stress test History of supraventricular tachycardia History of ulceration HTN (hypertension) Restless leg Smoker Wears dentures Wears glasses Home Medications aripiprazole 5 mg tablet 5 mg PO DAILY 07/10/23 [History Last Taken Unknown] buspirone 15 mg tablet 15 mg PO DAILY 07/10/23 [History Last Taken Unknown] gabapentin 300 mg capsule 600 mg PO QHS 07/10/23 [History Last Taken Unknown] glipizide 5 mg tablet 5 mg PO QHS 07/10/23 [History Last Taken Unknown] lisinopril 10 mg tablet 10 mg PO DAILY 07/10/23 [History Last Taken Unknown] sertraline 100 mg tablet 200 mg PO Q24H 07/10/23 [History Last Taken Unknown] spironolactone 100 mg tablet 100 mg PO DAILY 07/10/23 [History Last Taken Unknown] pancreatin 500 mg tablet 1,300 mg PO DAILY digestive health 08/31/23 [History Last Taken Unknown] pantoprazole 40 mg tablet,delayed release 40 mg PO DAILY 08/31/23 [History Last Taken Unknown] Allergy/AdvReac Type Severity Reaction Status Date / Time No Known Allergies Allergy Verified 09/02/23 07:25 Surgical History History of section History of cholecystectomy History of hernia repair History of hysterectomy History of lumpectomy of left breast History of tonsillectomy History of total right knee replacement Social History Smoking Status: Current every day smoker tobacco type: cigarettes ROS Constitutional Constitutional: Reports systems reviewed and no addt'l complaints, except as documented; Denies chills, fatigue, fever(s), malaise or night sweats Eyes Eyes: Reports systems reviewed and no addt'l complaints, except as documented ENT HEENT: Reports systems reviewed and no addt'l complaints, except as documented Cardiovascular Cardiovascular: Denies abdominal pain, chest pain or dyspnea Respiratory/Chest Respiratory/Chest: Reports cough; Denies dyspnea or inability to speak Gastrointestinal Gastrointestinal: Denies abdominal pain, anorexia, nausea or vomiting Genitourinary Genitourinary: Reports hematuria; Denies dysuria, urinary incontinence or urinary urgency Musculoskeletal Musculoskeletal: Reports systems reviewed and no addt'l complaints, except as documented Integumentary Integumentary: Reports systems reviewed and no addt'l complaints, except as documented Neurologic Neurologic: Reports systems reviewed and no addt'l complaints, except as documented Psychiatric Psychiatric: Reports systems reviewed and no addt'l complaints, except as documented Endocrine Endocrinology: Reports systems reviewed and no addt'l complaints, except as documented Hematologic/Lymphatic Hematologic/Lymphatic: Reports systems reviewed and no addt'l complaints, except as documented Allergic/Immunologic Allergic/Immunologic: Reports systems reviewed and no addt'l complaints, except as documented Vital Signs Vital Signs Vital Signs: 09/02/23 07:29 09/02/23 07:29 Temperature 99.4 F H Temperature Source Temporal Pulse Rate 68 Respiratory Rate 16 Respiratory Pattern Normal Blood Pressure 125/56 H Blood Pressure Mean 79 Blood Pressure Source Monitor Blood Pressure Position Semi-Fowlers Blood Pressure Location Left Arm Pulse Ox 95 Oxygen Delivery Method Room Air Weight Weight: 103 kg Body Mass Index (BMI) 37.8 Physical Exam Const alert, oriented x3 and no apparent distress General Appearance: cooperative and comfortable HEENT normocephalic, head/scalp atraumatic, hearing grossly normal bilaterally, external ears normal and external nose normal Eyes Eyes Narrative: Wearing glasses General Eye: normal appearance of both eyes Neck supple General: normal visual inspection and trachea midline Lymph Lymphatic: no lymphedema noted Chest inspection of chest normal Resp normal respiratory effort, normal air movement and no retractions Cardio regular rate and regular rhythm GI soft to palpation, non-tender and non-distended no CVA tenderness Back/Spine no CVA tenderness Extremity normal to inspection Skin no rashes or lesions noted, no jaundice, no petechiae and no mottling Neuro oriented x3, CN's II-XII intact bilaterally and moves all extremities Psych mental status grossly normal, thought process normal and cooperative Results Lab / Micro Data 09/02/23 07:50 Labs: Laboratory Results - last 24 hr 09/02/23 07:50: Potassium 3.9 Assessment & Plan Assessment/Plan (1) Gross hematuria: PLAN: Plan Cystoscopy, bilateral selective cytology, bilateral retrograde pyelograms, bilateral ureteroscopy, possible bilateral ureteral stent insertion Informed consent has been obtained
--- NOTE | 2023-09-02 08:24 | DCINST_ITS ---
Discharge Instructions Diet Discharge Diet: No restrictions Activity Discharge Activity: Return to Normal Activity Dressing / Incision Call your doctor if you observe: Fever of 101 or Higher, Inability to urinate and Inability to have a bowel movement Follow Up Care Please Follow Up With: Itzel Tobar MD When: The office will call the patient to make arrangements for stent removal next week. Test Results: Test results from this visit will be discussed in further detail at your follow- up appointment, if applicable. Discharge Plan Admission Attending Provider: Itzel Tobar Primary Care Provider: Blaire Dawson Discharge Orders/Prescriptions Prescriptions: New oxycodone-acetaminophen [Percocet] 5-325 mg tablet 1 tab PO Q8H PRN (Reason: pain) 3 Days Qty: 10 0RF cephalexin [cephalexin] 500 mg capsule 500 mg PO Q12 3 Days Qty: 6 0RF phenazopyridine [Pyridium] 200 mg tablet 200 mg PO TID PRN PRN (Reason: Bladder Spasms) 7 Days Qty: 30 0RF ondansetron 4 mg tablet,disintegrating 4 mg PO Q8H PRN (Reason: nausea and vomiting) Qty: 10 0RF Continued pantoprazole 40 mg tablet,delayed release (DR/EC) 40 mg PO DAILY pancreatin 500 mg tablet 1,300 mg PO DAILY gabapentin 300 mg capsule 600 mg PO QHS Patient Comments: TAKE 2 CAPSULES BY MOUTH EVERY DAY AT BEDTIME buspirone 15 mg tablet 15 mg PO DAILY Patient Comments: TAKE 1 TABLET BY MOUTH TWICE DAILY sertraline 100 mg tablet 200 mg PO Q24H Patient Comments: TAKE 2 TABLETS BY MOUTH EVERY DAY AT BEDTIME lisinopril 10 mg tablet 10 mg PO DAILY Patient Comments: TAKE 1 TABLET BY MOUTH ONCE DAILY aripiprazole 5 mg tablet 5 mg PO DAILY Patient Comments: TAKE 1 TABLET BY MOUTH ONCE DAILY spironolactone 100 mg tablet 100 mg PO DAILY Patient Comments: TAKE 1 TABLET BY MOUTH ONCE DAILY glipizide 5 mg tablet 5 mg PO QHS Patient Comments: TAKE 1 TABLET BY MOUTH BEFORE BEDTIME Other Ambulatory Orders: Potassium (Routine) Timeframe: [id number] Facility: [facility] - Location: Laboratory Ordered By: Dr. Hemanth Rios Referrals / Follow Up: Blaire Dawson PA-C [Primary Care Provider] - Disposition Disposition (needs filled in before D/C Order can be placed): Home, Self Care
--- NOTE | 2023-09-02 08:24 | PCM.OPRPT ---
Report of Operation Date of Procedure: 09/02/23 Pre-Operative Diagnosis: Gross hematuria Post-Operative Diagnosis: Same, right distal ureteral calculus Surgery/Procedure Performed:: Cystoscopy, bilateral selective cytology, bilateral retrograde pyelogram, bilateral ureteroscopy, holmium laser lithotripsy, stone basket extraction, right ureteral stent insertion Surgeon: Itzel Tobar Type of Anesthesia: General Specimen's removed: Bilateral washings of the renal pelvis for cytology, right ureteral calculus fragments Description of Procedure: The patient is a 52-year-old female with gross hematuria without a source. She presents for evaluation with cystoscopy and ureteroscopy. Informed consent was obtained. The patient was taken to the operating room and placed on the operating room table. Anesthesia monitored the head, neck, airway, IV access and vital signs without the case. Once anesthesia was appropriately administered, she was placed into dorsolithotomy position and was prepped and draped in usual sterile fashion. The cystoscope was inserted through the urethra under direct visualization. The bladder mucosa was visualized in its entirety finding no evidence of mass, erythema, ulceration or foreign body. A Pollick catheter was used to gently intubate the left ureter and advanced into the proximal ureter and renal pelvis without evidence of obstruction. Washings were taken from this area and sent for cytologic evaluation. Contrast was then injected in retrograde fashion from the distal ureter and visualization was done with fluoroscopy. There was no evidence of obstruction, filling defect or other abnormality. This Pollick catheter was then discarded. A brand-new Pollick catheter was then used to gently cannulate the right distal ureter and it was advanced easily into the renal pelvis where washings were taken. Once again the catheter was pulled into the distal ureter and contrast was injected in retrograde fashion. The middle and proximal ureter, renal pelvis and calyces were all normal without evidence of filling defect or obstruction. In the distal ureter what appeared to be a stone was identified. The Pollick catheter was removed and discarded. A 0.035 Glidewire was placed with the proximal end being seen in the renal pelvis. A semirigid ureteroscope was then used to cannulate the right distal ureter where a 7 mm stone was identified. A 200 ?m laser fiber was used to break the stone into small pieces which were removed with a basket. They were sent for evaluation. When the whole ureter was clear, the flexible ureteroscope was used for evaluation all the way into the renal pelvis and the calyces were each evaluated directly. There was no erythema, mass or abnormality. There were no further stones identified. At this time, using the safety wire, a 4.5 Hungarian 26 cm JJ stent was placed over the wire with good positioning in the renal pelvis as well as the urinary bladder. A 0.035 Glidewire was then passed into the left ureteral orifice and advanced to the renal pelvis is seen on fluoroscopy. The flexible ureteroscope was advanced over the wire all the way to the renal pelvis were each calyx was identified and directly visualized. There was no evidence of mass, erythema, stone or other foreign body in any area. The entire length of the ureter was also directly visualized and no abnormal findings were there. At this time the safety wire and the ureteroscope were removed. The patient was awakened and taken to the recovery room in good condition. There were no complications during this procedure. Grafts/Implants Used: 4.5 x 26 cm JJ stent Complications None Admit VTE Documentation VTE Present on Admission: Yes VTE Mechan Device Prophylaxis: SCD's VTE Pharm Prophylaxis ordered?: No Reason prophylaxis not ordered:: Treatment Not Indicated
[2023-09-02] MEDS: Cefazolin 2 GM in 0.9% Normal Saline (100mL Bag) 100 ML IV (08:26)
--- NOTE | 2023-09-02 08:50 | CALC_PTH ---
PATIENT: MICHELLE ANNE [place] [facility] [id number] AGE/SX: 52/F ROOM: RE09/02/[address]: Dr. Itzel Tobar MD : 1970 BED: DIS: 09/02/2023 SPEC #: [id number] RECD: 09/02/23 13:18 STATUS: ANNALEE PEREIRALeo #: [id number] RINKU: 09/02/23 08:[address]: Itzel Tobar DEPT: SURGICAL PATHOLOGY RECD BY: Akira Alba ENTERED: 09/02/23 13:19 SP TYPE: Calculi OTHR DR: Blaire Dawson PA-C Tissues: CALCULI Procedures: Surgery Specimen Level I HEADER OPERATION: Bilateral ureteroscopy, bilateral retrograde PRE-OP DIAGNOSIS: Gross hematuria TISSUE SUBMITTED: Calculi GROSS DIAGNOSIS Fragments of stone, clinically right ureteral stone fragments (gross only). COMMENT The calculi are submitted in its entirety for chemical stone analysis. The results from this study will be reported separately. GROSS DESCRIPTION Received without fixative labeled with the patient's name and designated Right ureteral stone fragments. The specimen consists of multiple fragments of brownish stone measuring in aggregate 0.5 x 0.3 x 0.2 cm. The entire specimen is submitted for stone analysis. [place] 09/02/23 CPT: 70905
[2023-09-02 09:04] LABS: Cytology, Body Fluid / CSF SEE PATHOLOGY REPORT
[2023-09-02 09:51] LABS: Bedside Glucose 112 mg/dL (74-106)
[2023-09-02 10:24] LABS: Bedside Glucose 123 mg/dL (74-106)
[2023-09-02 15:54] LABS: Cytology, Body Fluid / CSF SEE PATH REPORT
[2023-09-11 21:10] LABS: Source Right Ureter
[2023-09-11 21:12] LABS: Size 3x2 mm
== END 2023-09-02 11:23 | disposition home or self-care (01) ==
LOC: SDC 06:58 → AC 06:59
PROVIDERS: Anesthesiology; PCP Family Medicine; Referring Provider Family Medicine; Visit Provider Urology
PROC: 0TJ98ZZ Inspection of Ureter, Via Natural or Artificial Opening Endoscopic (ICD-10-PCS; CPT 52352; principal; 2023-09-02 08:40)
DX: N20.1 Calculus of ureter (principal); E11.9 Type 2 diabetes mellitus without complications; I10 Essential (primary) hypertension; F17.210 Nicotine dependence, cigarettes, uncomplicated; R31.29 Other microscopic hematuria; R31.0 Gross hematuria; Z90.710 Acquired absence of both cervix and uterus; K21.9 Gastro-esophageal reflux disease without esophagitis; Z79.899 Other long term (current) drug therapy; Z79.84 Long term (current) use of oral hypoglycemic drugs
CPT/HCPCS: 52356; 00873; 76000; 82360; 82962; 84132; 88108; 88300; 88313; J7120; J2405

== ENCOUNTER 2024-12-12 14:30 | Outpatient (RCR) | payer BC, SELFPAY ==
--- NOTE | 2024-11-08 17:20 | HP.PTEVAL ---
Patient's Visit Information Visit Information Visit Information: MICHELLE ANNE is a 53 year old F referred to Physical Therapy by CHEVY PEREZ with a diagnosis of M62.89 Pelvic floor dysfunction. Date of Evaluation: 11/08/24 Physical Therapist: Lesly Hoang Visit Plan Frequency: 1x/Week Duration: 2 Months Plan: Will see her 1 x week in preparation for her surgery and to give her some relief in the meantime as her surgery is not until Jan.17. She would benefit from skilled PT intervention to address her pelvic floor weakness and tightness. She also has lumbar dysfunction that may also be contributing to her control which we will also address in our sessions. Next visit continue pelvic floor releases right side especially. Work on lumbar How is she doing with decreasing Mountain Dew intake (she drinks several a day)? Gave her quick flicks today so add week 2 next visit. Educate on deep breathing next visit. Subjective Subjective: She has been scheduled for surgery 3 times and they had to cancel due to surgeon's schedule. She is currently scheduled for surgery Jan.17. Hysterectomy when she was 38 years. Baclofen 3 x day helps somewhat. Sometimes with a bowel movement she has a sharp poker when she has a bowel movement. She gets a big bulge in her rectum when she goes to the restroom. She puts pressure near tailbone sometimes to have a bowel movement. She has 3 children and all C sections. She has been having spasms in her low back. Sitting , standing, bending, initially feels like clenching and then can radiate up her back. 8/10 . She is in pain all the time. She has rectal polyps but they haven't been removed yet. She has mixed incontinence. Her biggest goal is to be painfree. Her second goal is to have better control of her bowels and bladder. Her main goal is to get back to work eventually (she worked as an REPORTING SPECIALIST). She has had symptoms for 2 years. She was having lower abdominal region pelvic pain and pressure. She was having a lot of vomiting. She lost her job as an REPORTING SPECIALIST. Now she can't lift over 10 lbs. She feels pressure with bending, squatting. She can't seed cone picker her grandkids. She has constant pressure more rectally. At night she feels vaginal pressure. She is up 4-5 x night. She drinks 6-8 Mountain Dew a day. She is constantly urinating every 30-45 minutes. She wears a Depends. She is also incontinent of bowels. She is afraid to go anywhere. She doesn't even feel an urge for a bowel movement sometimes. She reached for a shopping cart and lost control of her bowels one time in a store so now she is fearful to go anywhere . Pain low back pain: Pain Intensity (Out of 10): 7 Pain Intensity Range: 8 Vaginal, rectal: Pain Intensity (Out of 10): 6 Pain Intensity Range: 7 Objective Objective: POPDI-6 16, CRAD-8 22, SAÚL-6 17 Mild, moderate pelvic floor tightness right side layer 2, LAYCOCK 1/2/2/2, Anal wink but required cueing to complete contraction Rectocele 2, Cystocele 1+ Goals Goal 1:: Michelle will be able to delay the urge to urinate by 5 minutes to avoid any incontinence episodes. Goal Time Frame: 8-12 Weeks Goal 2:: Michelle will be able to cough or sneeze with 75% less leaking. Goal Time Frame: 8-12 Weeks Goal 3:: Michelle will be able to get to the restroom when she feels the urge to have a bowel movement to avoid any bowel incontinence episodes and get thru a week without bowel incontinence. Goal Time Frame: 8-12 Weeks Goal 4:: Michelle will be able to hold back gas to avoid any embarrassment. Goal Time Frame: 6-8 Weeks Rehabilitation Potential Physical Therapy Diagnosis: Mixed incontinence , Frequency of micturition Rehabilitation Potential: Fair Anticipated Interventions Patient/Client Instruction: Educate patient on: Condition and Plan of Care For the Purpose of:: To decrease pain, To improve muscle performance and motor function, To improve health and function and To improve self management Therapeutic Exercise to Include: Strength training, Neuromotor development, Relaxation training and Dynamic Lumbar Stabilization For the Purpose of:: To decrease pain, To improve muscle performance and motor function, To improve health and function and To improve self management Manual Therapy Techniques to Include: Trigger point massage, Mobilization and Soft tissue mobilization For the Purpose of:: To decrease pain, To improve muscle performance and motor function, To improve performance and independence with ADL's, To improve health and function and To improve self management Ultrasound (thermal/non thermal): Yes For the Purpose of:: To decrease pain, To improve muscle performance and motor function, To improve health and function and To improve self management Text: Thank you for the opportunity to evaluate your patient. For Medicare and Medicare HMO plans, please review the plan of care and approve it. It will need to be FAXED BACK to us at [phone] for Medicare purposes. For Medicare only, by signing this I certify the plan of care. Please let me know if there are questions or concerns regarding this plan of care. Physician Signature: Date:
--- NOTE | 2025-01-02 16:19 | HP.PT.NRP ---
Patient Information Patient Information: MICHELLE ANNE was seen in my office for initial evaluation on 11/08/24. The following Plan of Care was established for this patient: POC Established Initial Frequency: 1x/Week Initial Duration: 2 Months Anticipated Interventions Patient/Client Instruction: Educate patient on: Condition and Plan of Care For the Purpose of:: To decrease pain, To improve muscle performance and motor function, To improve health and function and To improve self management Therapeutic Exercise to Include: Strength training, Neuromotor development, Relaxation training and Dynamic Lumbar Stabilization For the Purpose of:: To decrease pain, To improve muscle performance and motor function, To improve health and function and To improve self management Manual Therapy Techniques to Include: Trigger point massage, Mobilization and Soft tissue mobilization For the Purpose of:: To decrease pain, To improve muscle performance and motor function, To improve performance and independence with ADL's, To improve health and function and To improve self management Ultrasound (thermal/non thermal): Yes For the Purpose of:: To decrease pain, To improve muscle performance and motor function, To improve health and function and To improve self management Last Seen Last Seen: This patient was last seen in our office 12/12/24. Pertinent comments regarding their Physical therapy will appear below: Patient cancelling her last visit on 01/03/25. She will be having surgery in January and may return after that. At this time we are discharging her from PT. At this point I will be discontinuing this patient from physical therapy. I would be happy to see this patient again in the future if found appropriate by the physician. Thank you! Lesly Hoang
== END 2024-12-12 19:00 | disposition home or self-care (01) ==
LOC: PT 14:30
PROVIDERS: PCP Family Medicine
DX: M62.89 Other specified disorders of muscle (principal)
CPT/HCPCS: 97110; 97112; 97140; 97162; 97530